=== PATIENT | female | born 1945 | race Caucasian/White ===

== ENCOUNTER 2018-10-21 11:44 | Emergency (ER) | payer MEDICARE, OTHER ==
[2018-10-21] MEDS ORDERED: Lidocaine 2% PF 5 ML VIAL ONE (12:01)
[2018-10-21] MEDS ORDERED: Adacel (T-DAP) 0.5 ML SYRINGE ONE (12:08)
== END 2018-10-21 12:30 | disposition home or self-care (01) ==
LOC: BURERS 11:44
DX: S81.811A Laceration without foreign body, right lower leg, initial encounter (principal); E78.5 Hyperlipidemia, unspecified; Z87.891 Personal history of nicotine dependence; Z23 Encounter for immunization; Z79.899 Other long term (current) drug therapy; W22.8XXA Striking against or struck by other objects, initial encounter
CPT/HCPCS: 12002; 90471; 90715; J2001

== ENCOUNTER 2019-03-12 10:33 | Outpatient (CLI) | payer MEDICARE ==
--- NOTE | 2019-03-12 12:30 | RAD ---
CHEST 2 VIEWS: DATE: 03/12/2019. FINDINGS: No prior films were available for comparison. The heart is normal in size. Faint calcification is seen in the aortic arch. There are no lobar inf iltrates or effusions. There is some mild increase in some of the pulmonary interstitial markings th at is likely chronic. A little haziness in the right cardiophrenic angle is probably just a fat pad. Mild degenerative changes are seen in the spine. A small hiatal hernia is indicated behind the hea rt. IMPRESSION: 1. No acute thoracic findings. 2. Small hiatal hernia. POS: HOME
== END 2019-03-12 10:34 | disposition home or self-care (01) ==
LOC: BURRAD 10:33
PROVIDERS: ATTEND Nurse Practitioner Family
DX: Z87.01 Personal history of pneumonia (recurrent) (principal); Z87.09 Personal history of other diseases of the respiratory system; K44.9 Diaphragmatic hernia without obstruction or gangrene
CPT/HCPCS: 71046

== ENCOUNTER 2025-03-09 12:00 | Outpatient (CLI) | payer MEDICARE, OTHER | END 2025-03-09 12:01 | disposition home or self-care (01) | LOC: BURRAD 12:00 | PROVIDERS: ATTEND Student in an Organized Health Care Education/Training Program | DX: R05.1 Acute cough (principal) | CPT/HCPCS: 71046 ==